=== PATIENT | male | born 1990 | race Hispanic/Latino ===

== ENCOUNTER 2017-08-12 09:50 | Emergency (ER) | payer SELFPAY ==
[2017-08-12] MEDS ORDERED: ONDANSETRON ODT 4 MG TAB ONE (10:13)
[2017-08-12] MEDS ORDERED: HYOSCYAMINE SULFATE 0.125 MG TAB.SUBL SL ONE (10:13)
== END 2017-08-12 11:19 | disposition home or self-care (01) ==
LOC: EDH 09:50
DX: K52.9 Noninfective gastroenteritis and colitis, unspecified (principal); Z72.0 Tobacco use
CPT/HCPCS: 87804